=== PATIENT | male | born 1945 | race Asian ===

== ENCOUNTER → 2017-09-05 | Outpatient (CLI) | payer MEDICARE, OTHER ==
[~2017-09-05] MED LIST: DILT30 PO; PROSTATE
== END | disposition home or self-care (01) ==
LOC: RADMN 12:24
PROVIDERS: ATTEND Internal Medicine
DX: M23.221 Derangement of posterior horn of medial meniscus due to old tear or injury, right knee (principal); S72.8X1G Other fracture of right femur, subsequent encounter for closed fracture with delayed healing; M25.461 Effusion, right knee; M65.88 Other synovitis and tenosynovitis, other site; M71.21 Synovial cyst of popliteal space [Baker], right knee; X58.XXXD Exposure to other specified factors, subsequent encounter
CPT/HCPCS: 73721

== ENCOUNTER → 2017-12-25 | Outpatient (CLI) | payer MEDICARE, OTHER | END | disposition home or self-care (01) | LOC: RADPV 14:22 | PROVIDERS: ATTEND Internal Medicine | DX: Z01.818 Encounter for other preprocedural examination (principal); R07.9 Chest pain, unspecified; I70.0 Atherosclerosis of aorta | CPT/HCPCS: 71046 ==